=== PATIENT | male | born 1995 | race African-American/Black ===

== ENCOUNTER 2023-11-08 11:03 | Outpatient (CLI) | payer OTHER, SELFPAY ==
[2023-11-13 15:57] LABS: H pylori Ag Stool Detected
== END 2023-11-08 13:37 ==
PROVIDERS: PCP Internal Medicine Gastroenterology; Visit Provider Nurse Practitioner Family
DX: K92.1 Melena (principal); R11.0 Nausea; R10.13 Epigastric pain
CPT/HCPCS: 87338

== ENCOUNTER 2023-12-02 07:00 | Outpatient (NON) | payer OTHER, SELFPAY | END 2023-12-02 07:01 | disposition home or self-care (01) | LOC: ANHLAB 12-03 07:40 | PROVIDERS: PCP Internal Medicine Gastroenterology; Visit Provider Internal Medicine Gastroenterology | DX: B37.81 Candidal esophagitis (principal) | CPT/HCPCS: 88305; 88312 ==

== ENCOUNTER 2023-12-02 10:08 | Day surgery (SDC) | payer OTHER, SELFPAY ==
[2023-11-18 15:21] VITALS: BMI 25.8
--- NOTE | 2023-12-01 22:07 | PM.HPGS ---
History of Present Illness History of Present Illness Consent: Risks, benefits, and alternatives have been discussed and questions answered. Patient agrees to proceed with procedure. Chief complaint: Epigastric Pain, Nausea, Melana Narrative: Lukasz Rodriguez is a 28 year old male who is having chronic epigastric pain that varies in severity. This pain does not have a direct correlation with food intake but temporarily improves with bowel movements. As he has intermittent episodes of nausea but denies any vomiting. This nausea seems to be worse after exercising. He complains of near constant abdominal bloating and increased belching but denies excessive flatulence. His weight is stable but he states that he is unable to gain weight despite trying to. Review of Systems Review of Systems: All systems reviewed & are unremarkable except as noted in HPI and below PMFSH Past Medical History Medical History Anxiety Social History Social History Smoking status: Never smoker Alcohol intake: never Substance use: current Substance use type: does not use Meds Home Medications and Allergies Home Medications Medication Instructions Recorded Confirmed Type ondansetron HCl 4 mg tablet 4 mg PO Q8H PRN nausea and 11/05/23 12/02/23 Rx vomiting #20 tabs Allergies Allergy/AdvReac Type Severity Reaction Status Date / Time amoxicillin Allergy Mild Hives Verified 12/02/23 11:55 azithromycin Allergy Mild Hives Verified 12/02/23 11:55 Exam Const: General: alert Orientation/consciousness: patient oriented x3 Resp: Auscultation: clear to auscultation bilaterally Cardio: Rhythm: regular rhythm GI: GI Palp: Yes Soft to palpation and No Tenderness to palpation present (GI) Neuro: General: patient oriented x3 Assessment and Plan Assessment and plan (1) Epigastric pain: Code(s): R10.13 - Epigastric pain Status: Acute Assessment and Plan: EGD with possible biopsy or dilatation or cautery. (2) Nausea: Code(s): R11.0 - Nausea Status: Acute Assessment and Plan: EGD with possible biopsy or dilatation or cautery.
[2023-12-02 11:54] VITALS: BP 110/86; PULSE 62; RESP 18; TEMP 37; O2SAT 100
[2023-12-02] MEDS: LACTATED RINGERS 1,000 ML 150 ML IV CONT (11:57)
--- NOTE | 2023-12-02 12:00 | WPDANESEPPF ---
Anes - Initial Pre Proc Eval Procedure: Operation Date: 12/02/23 12:30 Proposed Procedures p Esophagogastroduodenoscopy - Thom Aguila MD Date/Time: 12/02/23 12:00 Surgeon: Thom Aguila MD Pre Op Diagnosis: Epigastric Pain, Nausea, Melana Patient Data Age: 28 Gender: M Height: 1.68 m Weight: 72.3 kg Last Vital Signs Temp 37.0 C 12/02/23 11:54 Pulse 62 12/02/23 11:54 Resp 18 12/02/23 11:54 BP 110/86 12/02/23 11:54 Pulse Ox 100 12/02/23 11:54 O2 Del Method Room Air 12/02/23 11:54 Allergies Allergy/AdvReac Type Severity Reaction Status Date / Time amoxicillin Allergy Mild Hives Verified 12/02/23 11:55 azithromycin Allergy Mild Hives Verified 12/02/23 11:55 Home Medications Medication Instructions Recorded Confirmed Type ondansetron HCl 4 mg tablet 4 mg PO Q8H PRN nausea and 11/05/23 12/02/23 Rx vomiting #20 tabs Patient hx anesthesia problems: none Family hx anesthesia problems: none Results Review: All pre-operative results and documents have been reviewed as part of the pre-operative evaluation. [facility] Past Medical History Medical History Anxiety Social History Social History Smoking status: Never smoker Alcohol intake: never Substance use: current Substance use type: does not use Anes - Eval Final PreProcedure Day of Procedure 12/02/23 12:00 Heart: regular rate and rhythm Lungs: clear to auscultation Airway: Mallampati scale class II Neurological: alert and oriented Last oral intake: >/= 8 hours ASA classification: II Emergent: no Anesthetic plan: proceed Anesthesia type and monitoring: general GIVS and standard monitoring Results Review: All pre-operative results and documents have been reviewed as part of the pre-operative evaluation. Informed Consent: The patient's anesthetic plan and its attendant risks and benefits were discussed with the patient/family/POA. Questions were solicited and answers provided to the satisfaction of the patient/family/POA.
[2023-12-02 12:59] VITALS: BP 101/71; PULSE 67; RESP 16; O2SAT 100
[2023-12-02 13:10] VITALS: BP 106/62; PULSE 60; RESP 15; O2SAT 100
[2023-12-02 13:20] VITALS: BP 117/69; PULSE 54; RESP 15; O2SAT 100
--- NOTE | 2023-12-02 13:21 | WPDANESPN ---
Anes - Prog Note Post-Op Date/Time: 12/02/23 13:21 Cardiovascular status: normal Respiratory status: normal Airway patency: baseline Mental status: baseline Post-Op hydration status: normal Vital Signs: Last Vital Signs Temp 37.0 C 12/02/23 11:54 Pulse 60 12/02/23 13:10 Resp 15 12/02/23 13:10 BP 106/62 12/02/23 13:10 Pulse Ox 100 12/02/23 13:10 O2 Del Method Room Air 12/02/23 13:10 Pain Score (VAS): 0 I/O: Intake & Output 12/01/23 12/02/23 12/02/23 23:59 07:59 15:59 Intake Total 200 Balance 200 Patient Feedback: Patient satisfied with anesthetic care.
== END 2023-12-02 13:45 | disposition home or self-care (01) ==
PROVIDERS: PCP Internal Medicine Gastroenterology; Visit Provider Internal Medicine Gastroenterology
PROC: 0DJ08ZZ Inspection of Upper Intestinal Tract, Via Natural or Artificial Opening Endoscopic (ICD-10-PCS; CPT 43235; principal; 2023-12-02 12:30)
DX: R10.13 Epigastric pain (principal); R11.0 Nausea
CPT/HCPCS: 43239

== ENCOUNTER 2024-12-09 14:23 | Outpatient (CLI) | payer OTHER, SELFPAY ==
--- NOTE | ~2024-12-09 | MR_ITS ---
MRI of the left knee Clinical history: Pain Technique: Coronal proton density and proton density-weighted images, sagittal proton-density and T2 fat-sat images, and axial proton-density fat-saturated images were acquired. Findings: Anterior and posterior cruciate ligaments are intact. Medial collateral ligament and the la teral collateral ligament complex are intact. Popliteus tendon is intact. Medial and lateral menisci are intact, without evidence of tear. There is patchy moderate to high-grade chondral malacia the patellar apex and lateral facet. There is patchy moderate to high-grade chondromalacia of the femoral trochlea. There is focal high-grade polo dral fissure or lesion at the central aspect of the lateral femoral condyle. Small tricompartmental o steophyte are present. Extensor mechanism is intact. Minimal joint effusion present. No Reeves's cyst. Impression: Moderate degenerative change of the patellofemoral compartment. Mild degenerative change of the media l and lateral compartments. Minimal joint effusion. Reviewed, dictated and finalized at location M. Impression: Moderate degenerative change of the patellofemoral compartment. Mild degenerati ve change of the medial and lateral compartments. Minimal joint effusion.
--- OUTSIDE RECORDS SUMMARY | 2024-12-09 14:35 | XMS_ITS | Clinical Summary ---
Author Organization [facility] Address [address] [place] [address] Care Team Providers Care Phytopathology Teacher Name Role Phone Unavailable Primary Care Provider Unavailabl e Source Comments [facility],non-owned Affiliates and Associated Physician Practices is amultiple site organization consisting of ambulatory clinics and hospital sitesin [place], [place], [place] and [place]. This disclosure is being madepursuant to the Care Everywhere program and may not contain all information available regarding this patient. Last updated 18.[facility] Allergies Active Allergy Reactions Criticality Noted Date Comments Amoxicillin Itching 01/10/2020 Medications * Be aware that medications may not be up to date on this document. Alwaysverify current medications with the patient. No known medications Social History Tobacco Use Types Packs/Day Years Used Date Smoking Tobacco: Never Smokeless Tobacco: Never Alcohol Use Standard Drinks/Week Comments Not Currently 0 (1 standard drink = 0.6 oz pur e alcohol) Sex and Gender Information Value Date Recorded Sex Assigned at Not on file Legal Sex Male 6:39 AM CDT Gender Identity Not on file Sexual Orientation Not on file Last Filed Vital Signs Vital Sign Reading Time Taken Comments Blood Pressure 124/72 01/10/2020 12:58 PM CDT Pulse 60 01/10/2020 12:58 PM CDT Temperature 36.9 C (98.5 F) 01/10/2020 12:58 PM CDT Respiratory Rate 20 01/10/2020 6:42 AM CDT Oxygen Saturation 100% 01/10/2020 12:58 PM CDT Inhaled Oxygen Concentration - - Weight 70.3 kg (155 lb) 01/10/2020 6:42 AM CDT Height 167.6 cm (5' 6) 01/10/2020 6:42 AM CDT Body Mass Index 25.02 01/10/2020 6:42 AM CDT Plan of Treatment Health Maintenance Due Date Last Done Comments HIV SCREENING 2008 HEPATITIS C SCREENING 11/17/2011 DTAP/TDAP/TD VACCINES (1 - Tdap) 2012 HEPATITIS B VACCINE (1 of 3 - 19+ 3-dose series) 2012 COVID-19 VACCINE (1 - 2023-2 5 season) 2024 DEPRESSION SCREENING 06/03/2024 INFLUENZA VACCINE (#1) 2025 ZOSTER VACCINE (1 of 2) 11/22/2043 HIB VACCINE Aged Out No longer eligi ble based on patient's age to complete this topic HPV VACCINE Aged Out No longer eligi ble based on patient's age to complete this topic MENINGOCOCCAL (Group B) VACC INE SHARED DECISION-MAKING Aged Out No longer eligibl e based on patient's age to complete this topic MENINGOCOCCAL GROUPS A/C/Y/W VACCINE Aged Out No longer eligible b ased on patient's age to complete this topic PNEUMOCOCCAL VACCINE Aged Out No long er eligible based on patient's age to complete this topic [place] [address] [address] [place] [address] * Guarantor: MELIZA RODRIGUEZ Account Type Relation to Patient Date of Phone Billing Address Personal/Family [address] [place], [place] [phone] [facility] SELF PAY NO INSURANCE Member Subscriber Plan / Payer (Ef fective for All Dates) Name:Meliza Rodriguez Member ID:Not on file Relation to Subscriber:Not on file Name:JENNIFERMARICARMENDANNY Subscriber ID:Not on file Address: [address] [place], [place] [phone] Payer ID:Not on file Group ID:Not on file Type:Self Pay Address: [place], [place] * Guarantor: MELIZA RODRIGUEZ Account Type Relation to Patient Date of Phone Billing Address Personal/Family [address] [place], [place] [phone] [facility] SELF PAY NO INSURANCE Member Subscriber Plan / Payer (Ef fective for All Dates) Name:RodriguezMaricarmen houstondanny Member ID:Not on file Relation to Subscriber:Not on file Name:MELIZA RODRIGUEZ Subscriber ID:Not on file Address: [address] [place], [place] [phone] Payer ID:Not on file Group ID:Not on file Type:Self Pay Address: [place], [place] * Guarantor: MELIZA RODRIGUEZ Account Type Relation to Patient Date of Phone Billing Address Personal/Family [address] [place], [place] [phone] [facility] SELF PAY NO INSURANCE Member Subscriber Plan / Payer (Ef fective for All Dates) Name:Meliza Rodriguez Member ID:Not on file Relation to Subscriber:Not on file Name:MELIZA RODRIGUEZ Subscriber ID:Not on file Address: [address] [place] [id number] Payer ID:Not on file Group ID:Not on file Type:Self Pay Address: [place], [place]
--- OUTSIDE RECORDS SUMMARY | 2024-12-09 14:35 | XMS_ITS | Data Portability ---
Author Organization [facility], Main Office Address [address] [place] [address] Assessment Encounter Date Assessment Date Assessment LastModified by Organization Details LastModified Time 10/06/2024 10/06/2024 28yo patient presents today with left knee pain that started about a 5 years ago, but has recently been getting worse. He states that about 5 years ago he was skateboarding and landed hard on both of his legs. He had immediate pain in the left knee and was unable to walk on it for a while but never sought treatment. He states that he always had pain since then but it was manageable. Now the pain has become worse and lasts for longer periods of time. He states that sometimes he feels like something is inside of the knee. He can push on the knee where he is having pain and sometimes feel something hard move around. He has not tried any treatments at this time. Review of systems per patient questionnaire imaging: X-rays reviewed of the left knee show a possible old tibial plateau fracture that may have happened during his skateboarding injury 5 years ago. There is a loose body in the posterior knee. Physical exam: Nonantalgic gait. No tenderness with palpitation around the knee. No pain with deep flexion. Range of motion 0-150. Stable ligaments. Sensation intact throughout. He has an obvious loose body on x-ray. We will get an MRI to see the exact location to see if it is something that can be removed. In the meantime we will provide him with a knee exercise handout to work on strength as he says he feels weak in that knee. We will see him back after the MRI to go over results. He is in agreement with this plan. [email or web address] Not available 10/07/2024 09:28:29 Plan of Treatment Reminders Order Date Submit Date Provider Last Modified By Organization Details Last Modified Time Details Appointments None recorded. Lab None recorded. Referral None recorded. Procedures None recorded. Surgeries None recorded. Imaging XR, knee, 3 view 2024 [email or web address] [facility], [facility], [place], [address], 11:18:37 MRI, knee, w/o contrast - please contact patient to schedule. ..please provide patient with a disc, thanks 2024 [facility], [address], [place], [address], 15:55:15 Medication Orders None recorded. Patient TargetsNo targets recorded. Patient InstructionsNo instructions recorded. Reason for Referral None Reported. Results Created Date Observation Date Name Description Value Unit Range Abnormal Flag Note LastModifiedBy Organization Detail LastModifiedTime 10/07/19 25 XR, knee, 3 view No observ ation record ed. [email or web address] [facility] [place] [address], [place], [address], 10/07/2024 08:59:50 Result Notes None recorded. Problems Name Problem SNOMED Code Status Onset Date Resolution Date Notes Provider Name and Address Organization Details Recorded Time Pain of knee region 0909211352 Active ALAN ChappellA [employer], [employer] 14:18:38 Problem Notes None recorded. Procedures Surgical History Date Name Laterality Status Provider Name and Address Organization Details Recorded Time operative procedure on forearm completed ALAN ChappellA [employer] - [employer] 10/06/2024 14:22:13 Imaging Results None recorded. Procedure Notes None recorded. Medical Equipment None Reported. 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 null, [place] - [employer] 14:20:27 94992 azithromy gabby medicatio n anaphylax is Not available Not available 10/06/2024 01731 RxNorm LINNETTE Chappell [place] - [facility] [employer] 14:20:40 Medications Name Sig Start Date Stop Date Status Note LastModified by Organization Details LastModified Time triamcinolo ne acetonide 0.5 % topical cream APPLY TO AFFECTED AREA(S) TWICE A DAY NEEDED 10/06 completed Not Available Not Available Not Available clarithromy gabby 500 mg tablet TAKE 1 TABLET BY MOUTH EVERY 12 HOURS X14 DAYS 10/06 completed Not Available Not Available Not Available ondansetron HCl 4 mg tablet TAKE 1 TABLET BY MOUTH EVERY 8 HOURS NEEDED FOR NAUSEA/VO MITING 10/06 completed Not Available Not Available Not Available metronidazo le 500 mg tablet TAKE 1 TABLET BY MOUTH EVERY 12 HOURS X14 DAYS 10/06 completed Not Available Not Available Not Available omeprazole 40 mg capsule,del ayed release TAKE 1 CAPSULE BY MOUTH TWICE A DAY X14 DAYS 10/06 completed Not Available Not Available Not Available Vitals Date Recorded Body height Body mass index (BMI) Body weight Provider Name and Address Organization Details Last Updated DateTime 10/06/2024 167.64 cm 29.9 kg/m2 33926.59 g Neyda De La CruzLINNETTE [place] Ana Maria [facility] [employer] 10/06/2024 14:19:49 Social History None recorded. Functional Status Question Answer Note LastModified by Organizat ion Details LastModified Time What is your level of alcohol consumption? Occasional [email or web address] Information not available 10/06/2024 Mental Status None recorded. Family History Relationship Description Onset Age of this Age Resolved Age Notes LastModified by Organization Details LastModified Time Brother Diabetes mellitus [email or web address] Not available 2024 14:18:12 Medical History Condition Response ULCERS Y Past Encounters Encounter ID Performer Location Encounter Start Date Encounter Closed Date Diagnosis/Indication Diagnosis SNOMED-CT Code Diagnosis ICD10 Code Diagnosis Note [id number] Deon Kebede MD [facility] [address] [place] [address] 10/06/2024 14:02:49 10/06/2024 14:46:40 Pain of knee region 1911141647 M25.562 Health Concerns Section Related Observation LastModified by Organization Detai ls LastModified Time None Recorded Concern Status LastModified by Organization Details LastModified Time None Recorded Advance Directives Directive None Recorded Payers Insurance Date Sequence Insurance Name Policy Number Policy Shelton Covered Member ID Shelton Member ID Guarantor Name 11/02/2024 1 [facility] (MEDICAID HMO) [id number] Lukasz Rodriguez [id number] Lukasz Rodriguez
--- OUTSIDE RECORDS SUMMARY | 2024-12-09 14:36 | XMS_ITS | Encounter Summary ---
Author Organization [facility] Address [address] [place] [address] Care Team Providers Care Coverage Analyst Name Role Phone Unavailable Primary Care Provider Unavailabl e Encounter Details Date Type Department Care Team (Late st Contact Info) Description 01/10/2020 Ophth Exam [facility] [address] [place] [address] Placido Sanchez MD [address] [facility] [address] [place] [address] Social History Tobacco Use Types Packs/Day Years Used Date Smoking Tobacco: Never Smokeless Tobacco: Never Alcohol Use Standard Drinks/Week Comments Not Currently 0 (1 standard drink = 0.6 oz pur e alcohol) Sex and Gender Information Value Date Recorded Sex Assigned at Not on file Legal Sex Male 6:39 AM CDT Gender Identity Not on file Sexual Orientation Not on file documented as of this encounter Plan of Treatment Not on file documented as of this encounter Visit Diagnoses Not on filedocumented in this encounter
--- OUTSIDE RECORDS SUMMARY | 2024-12-09 14:36 | XMS_ITS | Continuity of Care Document ---
Author Organization [facility] Address [address] [place] [address] Phone Care Team Providers Care Draw Machine Operator Name Role Phone Buddy Juarez DO Unavailable Unavailable Advance Directives Directive Yes / No Effective Date File Name No Information Encounters Encounter Description Practice Location Reason(s) For Visit Diagnoses Date Provider Providers Copied on Encounter [facility], [address], [place], [place], [id number], tel:[phone] [facility] No Information Ann Person. [address] [place], [address], . tel: [phone] Family History Family Member Type Diagnosis Age At Onset No Information Payers Payer name Insurance type Covered green party ID Authoriza tion(s) Medicaid [facility] [id number] Social History Type Description Quantity Date Captured Comments Sex Male Smoking Status No Information Chief Complaint And Reason For Visit No Information Reason For Referral Reason For Referral No Information History Of Present Illness Encounter Date Complaint History Of Prese nt Illness No Information Functional Status Date Functional Assessmen t No Information Instructions Date Instruction Additional Infor mation No Information Assessments Type Assessment Date No Information Patient Care Teams Name Effective Dates (start - stop) Status Members No Information
== END 2024-12-09 14:24 | disposition home or self-care (01) ==
PROVIDERS: PCP Internal Medicine Gastroenterology; Visit Provider Nurse Practitioner Family
DX: M17.12 Unilateral primary osteoarthritis, left knee (principal)
CPT/HCPCS: 73721